=== PATIENT | male | born 1960 | race Caucasian/White ===

== ENCOUNTER 2018-12-06 16:28 | Observation (INO) | payer MEDICARE ==
[~2018-12-06] VITALS: Ht 177.8 cm; Wt 79.4 kg
[~2018-12-06 16:28] MED LIST changes: -ACET325 PO; -ALBU2.5V5 NEB; -DOCU100 PO; -Ferrous Sulfat325 M2 PO; -Fruity C250 MG PO; -GUAI600T33 PO; -TRAZ50 PO; -Vitamin D2000 UNIT PO
[2018-12-06] MEDS ORDERED: Fruity C250 MG PO (17:06)
[2018-12-06] MEDS ORDERED: TRAZ50 PO (17:08)
[2018-12-06] MEDS ORDERED: Vitamin D2000 UNIT PO (17:08)
[2018-12-06] MEDS ORDERED: Ferrous Sulfat325 M2 PO (17:09)
[2018-12-06 21:04] LABS: Adenovirus Not Detected (NOT DETECT); Bordetella pertussis Not Detected (NOT DETECT); Chlamydophila pneumoniae Not Detected (NOT DETECT); Coronavirus 229E Not Detected (NOT DETECT); Coronavirus HKU1 Not Detected (NOT DETECT); Coronavirus NL63 Not Detected (NOT DETECT); Coronavirus OC43 Not Detected (NOT DETECT); Human Metapneumovirus Not Detected (NOT DETECT); Human Rhinovirus/Enterovirus Detected (NOT DETECT); Influenza A Not Detected (NOT DETECT); Influenza A/2009-H1 Not Detected (NOT DETECT); Influenza A/H1 Not Detected (NOT DETECT); Influenza A/H3 Not Detected (NOT DETECT); Influenza B Not Detected (NOT DETECT); Mycoplasma pneumoniae Not Detected (NOT DETECT); Parainfluenza Virus 1 Not Detected (NOT DETECT); Parainfluenza Virus 2 Not Detected (NOT DETECT); Parainfluenza Virus 3 Not Detected (NOT DETECT); Parainfluenza Virus 4 Not Detected (NOT DETECT); Respiratory Syncytial Virus Not Detected (NOT DETECT)
[2018-12-07 01:14] LABS: BASOPHILS ABSOLUTE AUTO 0.02 K/mm3 (0.00-0.23); BASOPHILS PERCENT AUTO 0 % (0-2); EOSINOPHILS PERCENT AUTO 0 % (0-6); Hemoglobin 12.5 g/dL (13.5-17.5); IMMATURE GRAN ABSOLUTE AUTO 0.05 K/mm3 (0.00-0.10); IMMATURE GRAN PERCENT AUTO 0 % (0-1); LYMPHOCYTES ABSOLUTE AUTO 1.16 K/mm3 (0.84-5.20); LYMPHOCYTES PERCENT AUTO 10 % (21-46); MONOCYTES ABSOLUTE AUTO 0.13 K/mm3 (0.16-1.47); MONOCYTES PERCENT AUTO 1 % (4-13); Mean Corpuscular HGB 28.5 pg (26.0-34.0); Mean Corpuscular HGB Conc 32.1 g/dL (31.5-36.5); Mean Corpuscular Volume 89 fL (80-100); Mean Platelet Volume 10.4 fL (9.1-12.4); NEUTROPHILS ABSOLUTE AUTO 10.03 K/mm3 (1.96-9.15); NEUTROPHILS PERCENT AUTO 88 % (41-73); Platelet Count 233 K/mm3 (150-400); RDW Coefficient Variation 13.2 % (11.7-14.2); RDW Standard Deviation 43.7 fL (35.1-46.3); Red Blood Cell Count 4.38 M/mm3 (4.30-5.90); White Blood Cell Count 11.39 K/mm3 (4.00-11.30)
[2018-12-07 01:32] LABS: Alanine Aminotransfer (ALT/SGP 31 U/L (12-78); Albumin, Blood 3.5 g/dL (3.4-5.0); Albumin/Globulin Ratio 0.9 (0.8-1.8); Alk Phos 81 U/L (50-136); Anion Gap 11 mmol/L (6-16); Aspartate Aminotrans (AST/SGOT 17 U/L (12-37); Bilirubin, Total 0.4 mg/dL (0.1-1.0); Blood Urea Nitrogen 23 mg/dL (8-24); Bun/Creatinine Ratio 20.4 (12.0-20.0); CO2, Blood 23 mmol/L (21-32); Calcium, Blood 8.9 mg/dL (8.5-10.1); Chloride, Blood 103 mmol/L (98-108); Creatinine, Blood 1.13 mg/dL (0.60-1.20); Globulin, Blood 3.8 g/dL (2.2-4.0); Glomerular Filtration Rate >60 (60-); Glucose, Blood 221 mg/dL (70-99); Potassium, Blood 3.3 mmol/L (3.5-5.5); Sodium, Blood 137 mmol/L (136-145); Total Protein, Blood 7.3 g/dL (6.4-8.2)
--- NOTE | 2018-12-07 04:49 | NUR ---
SHIFT SUMMARY: PT DENIES CHEST PAIN AND SOB T/O SHIFT. NSR PER TELE. VS WNL. DECREASE IN TROPONIN THIS AM. PT C/O DRY COUGH. BREATHING TX PRN. INDEPENDENT IN ROOM. VOIDING AND CHRISTAL CARDIAC DIET. DENIES N/V.
--- NOTE | 2018-12-07 10:03 | NUR ---
PT DENIES CP STATED HIS BACK IS BETTER STILL HAS A COUGH POS ENTERO/RHINO VIRUS DR Venkata RIVAS CALLED RE INC TROP LEVEL 0.256 NO NEW ORDER
--- NOTE | 2018-12-07 10:41 | NUR ---
DR RIVAS ROUNDED RE ELEVATED TROP LEVEL. STATED ECHO WILL BE SCHEDULED AND OVERNIGHT PULSE OX TESTING TONIGHT
--- NOTE | 2018-12-07 17:51 | NUR ---
PT EATING DINNER, NO C/O CP AT THIS TIME. NO ACUTE CHANGES. PT AWAITING EKG TODAY OR TOMORROW
--- NOTE | 2018-12-08 05:38 | NUR ---
PT HAD NO ACUTE CHANGES T/O NIGHT; VSS. PT DENIED CP/PRESSURE/SOB. SLEEP STUDY COMPLETED. PT INDEP IN ROOM, IS USING CALL LIGHT FOR ASSISTANCE, WILL CONT TO MONITOR UNTIL REP GIVEN TO ONCOMING RN.
[2018-12-08 06:06] LABS: BASOPHILS ABSOLUTE AUTO 0.02 K/mm3 (0.00-0.23); BASOPHILS PERCENT AUTO 0 % (0-2); EOSINOPHILS ABSOLUTE AUTO 0.02 K/mm3 (0.00-0.68); EOSINOPHILS PERCENT AUTO 0 % (0-6); Hematocrit 30.5 % (37.0-53.0); Hemoglobin 9.6 g/dL (13.5-17.5); IMMATURE GRAN ABSOLUTE AUTO 0.08 K/mm3 (0.00-0.10); IMMATURE GRAN PERCENT AUTO 1 % (0-1); LYMPHOCYTES ABSOLUTE AUTO 3.32 K/mm3 (0.84-5.20); LYMPHOCYTES PERCENT AUTO 23 % (21-46); MONOCYTES ABSOLUTE AUTO 0.97 K/mm3 (0.16-1.47); MONOCYTES PERCENT AUTO 7 % (4-13); Mean Corpuscular HGB 28.7 pg (26.0-34.0); Mean Corpuscular HGB Conc 31.5 g/dL (31.5-36.5); Mean Corpuscular Volume 91 fL (80-100); Mean Platelet Volume 11.1 fL (9.1-12.4); NEUTROPHILS ABSOLUTE AUTO 10.19 K/mm3 (1.96-9.15); NEUTROPHILS PERCENT AUTO 70 % (41-73); Platelet Count 205 K/mm3 (150-400); RDW Coefficient Variation 13.5 % (11.7-14.2); RDW Standard Deviation 44.9 fL (35.1-46.3); Red Blood Cell Count 3.35 M/mm3 (4.30-5.90)
--- NOTE | 2018-12-08 08:22 | NUR ---
meds given as sched pt eating breakfast
[2018-12-08 09:40] LABS: Anion Gap 7 mmol/L (6-16); Blood Urea Nitrogen 23 mg/dL (8-24); Bun/Creatinine Ratio 24.6 (12.0-20.0); CO2, Blood 25 mmol/L (21-32); Calcium, Blood 8.1 mg/dL (8.5-10.1); Chloride, Blood 107 mmol/L (98-108); Creatinine, Blood 0.94 mg/dL (0.60-1.20); Glomerular Filtration Rate >60 (60-); Glucose, Blood 218 mg/dL (70-99); Potassium, Blood 3.9 mmol/L (3.5-5.5); Sodium, Blood 139 mmol/L (136-145)
[2018-12-08 09:44] LABS: Troponin I 0.234 ng/mL (0.000-0.040)
--- NOTE | 2018-12-08 12:00 | NUR ---
dr miladis pate by to see pt ok to discharge home
[2018-12-08] MEDS ORDERED: ACET325 PO (13:26)
[2018-12-08] MEDS ORDERED: ALBU2.5V5 NEB (13:27)
[2018-12-08] MEDS ORDERED: DOCU100 PO (13:28)
[2018-12-08] MEDS ORDERED: GUAI600T33 PO (13:29)
--- NOTE | 2018-12-08 15:02 | NUR ---
discharge instructions reviewed with pt verbalized rx called to [facility] no acute changes amb to car
== END 2018-12-08 15:02 | disposition home or self-care (01) ==
LOC: ER 16:28 → SURS 16:29
PROVIDERS: Family Medicine; ADMIT Family Medicine
DX: J44.1 Chronic obstructive pulmonary disease with (acute) exacerbation (principal); B97.10 Unspecified enterovirus as the cause of diseases classified elsewhere; B97.89 Other viral agents as the cause of diseases classified elsewhere; R07.89 Other chest pain; E11.9 Type 2 diabetes mellitus without complications; G47.33 Obstructive sleep apnea (adult) (pediatric); R77.8 Other specified abnormalities of plasma proteins; I25.10 Atherosclerotic heart disease of native coronary artery without angina pectoris; E78.5 Hyperlipidemia, unspecified; Z87.891 Personal history of nicotine dependence; Z88.5 Allergy status to narcotic agent; Z88.8 Allergy status to other drugs, medicaments and biological substances; Z79.899 Other long term (current) drug therapy; Z79.84 Long term (current) use of oral hypoglycemic drugs
CPT/HCPCS: 36415; 80048; 80053; 82947; 83036; 84484; 85025; 87486; 87581; 87633; 87798; 93005; 93010; 93306; 94640; 94760; 94762; 96372; 96374; 96376; 99285-25; G0378; J1650; J2920

== ENCOUNTER → 2018-12-06 | Outpatient (CLI) | payer MEDICARE ==
[~2018-12-06] MED LIST: ACET325 PO; ALBU2.5V5 NEB; ALBU90OI; ALBU90OI6 INH; ASCO500 PO; ASPI325 PO; ASPI325EC; ASPI81CH; ATOR10 PO; Aspir 8181 MG PO; BUPR150ER PO; CLOP75 PO; COLE625; CYCL10 PO; DOCU100; DOCU100 PO; Desyrel50 MG PO; ENAL2.5; EZET10; Ferrous Sulfat325 M2 PO; Fruity C250 MG PO; GUAI600T33 PO; HYDCHL25 PO; IBUP800 PO; ISODIN20; LOSA25 PO; METF500 PO; METO25 PO; METPHE20CR PO; MORP20L; NIAC500ER; NITR.4SL SL; Nitrostat0.4 MG; OMEP20ER PO; OXYACE5T PO; OXYC1TAB11 PO; OXYC5; PENVK500 PO; Plavix75 MG PO; RANI150; RANI150 PO; RXPENVK250 PO; TAMS.4ER PO; TRAZ100 PO; TRAZ50 PO; TRIHYD253A; Vitamin D2000 UNIT PO; ZYRTEC10 M2 PO
[2018-12-06 15:45] LABS: BASOPHILS ABSOLUTE AUTO 0.09 K/mm3 (0.00-0.23); BASOPHILS PERCENT AUTO 1 % (0-2); EOSINOPHILS PERCENT AUTO 2 % (0-6); Hemoglobin 12.9 g/dL (13.5-17.5); IMMATURE GRAN ABSOLUTE AUTO 0.06 K/mm3 (0.00-0.10); IMMATURE GRAN PERCENT AUTO 0 % (0-1); LYMPHOCYTES ABSOLUTE AUTO 2.98 K/mm3 (0.84-5.20); LYMPHOCYTES PERCENT AUTO 20 % (21-46); MONOCYTES ABSOLUTE AUTO 0.94 K/mm3 (0.16-1.47); MONOCYTES PERCENT AUTO 6 % (4-13); Mean Corpuscular HGB 28.9 pg (26.0-34.0); Mean Corpuscular HGB Conc 33.1 g/dL (31.5-36.5); Mean Corpuscular Volume 87 fL (80-100); Mean Platelet Volume 10.7 fL (9.1-12.4); NEUTROPHILS PERCENT AUTO 71 % (41-73); Platelet Count 259 K/mm3 (150-400); RDW Coefficient Variation 13.6 % (11.7-14.2); RDW Standard Deviation 43.2 fL (35.1-46.3); Red Blood Cell Count 4.47 M/mm3 (4.30-5.90); White Blood Cell Count 15.27 K/mm3 (4.00-11.30)
[2018-12-06 15:56] LABS: Alanine Aminotransfer (ALT/SGP 36 U/L (12-78); Albumin/Globulin Ratio 1.1 (0.8-1.8); Alk Phos 92 U/L (40-126); Anion Gap 11 mmol/L (6-16); Aspartate Aminotrans (AST/SGOT 20 U/L (12-37); Bilirubin, Total 0.4 mg/dL (0.1-1.0); Blood Urea Nitrogen 13 mg/dL (8-24); CO2, Blood 27 mmol/L (21-32); Calcium, Blood 8.9 mg/dL (8.5-10.1); Chloride, Blood 101 mmol/L (98-108); Creatinine, Blood 1.18 mg/dL (0.60-1.20); Globulin, Blood 3.8 g/dL (2.2-4.0); Glomerular Filtration Rate >60 (60-); Glucose, Blood 99 mg/dL (70-99); Potassium, Blood 3.5 mmol/L (3.5-5.5); Sodium, Blood 139 mmol/L (136-145); Total Protein, Blood 7.8 g/dL (6.4-8.2); Troponin I 0.149 ng/mL (0.000-0.040)
== END | disposition home or self-care (01) ==
LOC: LAB SHORT 15:39 → LAB EV 15:39
PROVIDERS: General Practice
DX: Z72.0 Tobacco use (principal)
CPT/HCPCS: 80053; 83880; 84484; 85025

== ENCOUNTER → 2019-11-05 | Outpatient (CLI) | payer MEDICARE ==
[~2019-11-05] MED LIST changes: +ACET325 PO; +ALBU2.5V5 NEB; +DOCU100 PO; +Ferrous Sulfat325 M2 PO; +Fruity C250 MG PO; +GUAI600T33 PO; +TRAZ50 PO; +Vitamin D2000 UNIT PO
[2019-11-05 18:58] LABS: BASOPHILS ABSOLUTE AUTO 0.14 K/mm3 (0.00-0.23); BASOPHILS PERCENT AUTO 1 % (0-2); EOSINOPHILS ABSOLUTE AUTO 0.42 K/mm3 (0.00-0.68); EOSINOPHILS PERCENT AUTO 2 % (0-6); Hematocrit 40.8 % (37.0-53.0); Hemoglobin 13.8 g/dL (13.5-17.5); IMMATURE GRAN ABSOLUTE AUTO 0.11 K/mm3 (0.00-0.10); IMMATURE GRAN PERCENT AUTO 1 % (0-1); LYMPHOCYTES ABSOLUTE AUTO 5.31 K/mm3 (0.84-5.20); LYMPHOCYTES PERCENT AUTO 31 % (21-46); MONOCYTES ABSOLUTE AUTO 1.41 K/mm3 (0.16-1.47); MONOCYTES PERCENT AUTO 8 % (4-13); Mean Corpuscular HGB 29.1 pg (26.0-34.0); Mean Corpuscular HGB Conc 33.8 g/dL (31.5-36.5); Mean Corpuscular Volume 86 fL (80-100); Mean Platelet Volume 10.3 fL (9.1-12.4); NEUTROPHILS ABSOLUTE AUTO 9.78 K/mm3 (1.96-9.15); NEUTROPHILS PERCENT AUTO 57 % (41-73); Platelet Count 288 K/mm3 (150-400); RDW Coefficient Variation 13.3 % (11.7-14.2); RDW Standard Deviation 41.6 fL (35.1-46.3); Red Blood Cell Count 4.75 M/mm3 (4.30-5.90); White Blood Cell Count 17.17 K/mm3 (4.00-11.30)
[2019-11-05 19:07] LABS: Alanine Aminotransfer (ALT/SGP 34 U/L (12-78); Albumin, Blood 3.9 g/dL (3.4-5.0); Alk Phos 99 U/L (40-126); Anion Gap 10 mmol/L (6-16); Aspartate Aminotrans (AST/SGOT 16 U/L (12-37); Bilirubin, Total 0.2 mg/dL (0.1-1.0); Blood Urea Nitrogen 15 mg/dL (8-24); CO2, Blood 26 mmol/L (21-32); Calcium, Blood 8.8 mg/dL (8.5-10.1); Chloride, Blood 101 mmol/L (98-108); Creatinine, Blood 0.94 mg/dL (0.60-1.20); Globulin, Blood 3.9 g/dL (2.2-4.0); Glomerular Filtration Rate >60 (60-); Glucose, Blood 100 mg/dL (70-99); Potassium, Blood 3.4 mmol/L (3.5-5.5); Sodium, Blood 137 mmol/L (136-145); Total Protein, Blood 7.8 g/dL (6.4-8.2); Uric Acid, Blood 5.4 mg/dL (3.5-7.2)
== END | disposition home or self-care (01) ==
LOC: LAB EV 18:52 → LAB SHORT 18:52
PROVIDERS: Physician Assistant
DX: M25.532 Pain in left wrist (principal)
CPT/HCPCS: 80053; 84550; 85025

== ENCOUNTER 2020-02-11 10:19 | Day surgery (SDC) | payer MEDICARE ==
[~2020-02-11] VITALS: Ht 165.1 cm; Wt 76.0 kg
--- NOTE | 2020-02-11 12:42 | NUR ---
COBAN REMOVED FROM LEFT BRACHIAL SITE. TEGADERM APPLIED AND SITE MARKED. SMALL AMOUNT OF BLOOD ON MALICK.
--- NOTE | 2020-02-11 14:54 | NUR ---
PT RETURNED TO RECOVERY ROOM IN RECLINER. RIGHT RADIAL TR BAND SITE WITH NO HEMATOMA, NO PULSATILE BLEEDING AND WRIST BOARD IN PLACE. PT DENIES CP, BUT HAS SOME RIGHT WRIST "SORENESS". RIGHT FINGERS PURPLE TINGE; SP02 99% TO RIGHT INDEX FINGER. CALL LIGHT IN REACH.
[2020-02-11] MEDS ORDERED: CLOP75 (15:15)
--- NOTE | 2020-02-11 16:20 | NUR ---
ASSUMED CARE OF PT. PT ALERT AND ORIENTED, PLEASENT AND COOPERATIVE, DENIES CHEST PAIN POST PROCEDURE. MONITOR SR 70'S, B/P 145/69, SPO2 99% RA. R RADIAL SITE NO SWELLING/HEMATOMA, TR BAND IN PLACE. PT SITTING UP N RECLINER WATCHING TV WITHOUT ISSUES.
--- NOTE | 2020-02-11 17:15 | NUR ---
PT AMB TO BATHROOM, GAIT STEADY; SITE UNCHANGED WITH ACTVITY.
--- NOTE | 2020-02-11 17:40 | NUR ---
PT DRESSED SELF WITHOUT ISSUE, TR BAND REMOVED, CLOTH DOT AND WRIST IMMOBILZIER PLACED-IV REMOVED, CANNULA INTACT.
--- NOTE | 2020-02-11 17:45 | NUR ---
PT RECEIVED DISCHARGE INSTRUCTIONS, MED LIST AND AFTER CARE INSTRUCTIONS; VERBALIZED GOOD UNDERSTANDING. PT LEFT FACILITY VIA W/C, CONDITION STABLE.
== END 2020-02-11 17:45 | disposition home or self-care (01) ==
LOC: MHTC 10:19
PROC: B201YZZ Plain Radiography of Multiple Coronary Arteries using Other Contrast (ICD-10-PCS; principal; 2020-02-11)
PROC: 4A023N7 Measurement of Cardiac Sampling and Pressure, Left Heart, Percutaneous Approach (ICD-10-PCS; principal; 2020-02-11)
DX: I25.118 Atherosclerotic heart disease of native coronary artery with other forms of angina pectoris (principal); E11.9 Type 2 diabetes mellitus without complications; E78.5 Hyperlipidemia, unspecified; E78.00 Pure hypercholesterolemia, unspecified; J43.9 Emphysema, unspecified; I10 Essential (primary) hypertension; F17.210 Nicotine dependence, cigarettes, uncomplicated; Z79.899 Other long term (current) drug therapy; Z79.4 Long term (current) use of insulin; Z79.82 Long term (current) use of aspirin; Z88.5 Allergy status to narcotic agent; Z88.8 Allergy status to other drugs, medicaments and biological substances
CPT/HCPCS: 76937; 82947; 85347; 92978; 93005; 93010; 93458; 93571; 99152; 99153; C1725; C1753; C1769; C1874; C1887; C1894; C9600; C9601; J1644; J2250; J3010; J7030; Q9967

== ENCOUNTER 2020-02-17 14:16 | Emergency (ER) | payer MEDICARE ==
[~2020-02-17] VITALS: Ht 165.1 cm; Wt 72.6 kg
[~2020-02-17 14:16] MED LIST changes: +CLOP75
== END 2020-02-17 16:25 | disposition home or self-care (01) ==
LOC: ER 14:16
DX: M79.89 Other specified soft tissue disorders (principal); M79.601 Pain in right arm; I10 Essential (primary) hypertension; I25.2 Old myocardial infarction; F17.210 Nicotine dependence, cigarettes, uncomplicated; Z79.82 Long term (current) use of aspirin; Z79.899 Other long term (current) drug therapy; Z98.890 Other specified postprocedural states
CPT/HCPCS: 93931; 99283-25